=== PATIENT | male | born 1970 | race Two or more races ===

== ENCOUNTER 2018-04-05 23:21 | Emergency (ER) | payer MEDICAID ==
[~2018-04-05] VITALS: Ht 167.6 cm; Wt 72.6 kg
[2018-04-06] MEDS ORDERED: cloNIDine HCL 0.1 MG TAB PO ONE
[2018-04-06 04:33] VITALS: BP 106/77
[2018-04-06] MEDS ORDERED: HYDROcodone-ACET 10/325MG TAB PO ONE (05:30)
== END 2018-04-06 06:51 | disposition home or self-care (01) ==
LOC: ER 23:24
DX: S02.5XXA Fracture of tooth (traumatic), initial encounter for closed fracture (principal); K02.9 Dental caries, unspecified; K04.7 Periapical abscess without sinus; I10 Essential (primary) hypertension; F17.210 Nicotine dependence, cigarettes, uncomplicated; E11.9 Type 2 diabetes mellitus without complications; X58.XXXA Exposure to other specified factors, initial encounter; Y93.89 Activity, other specified; Y92.89 Other specified places as the place of occurrence of the external cause; Y99.8 Other external cause status
CPT/HCPCS: 82962